=== PATIENT | male | born 1960 | race Caucasian/White ===

== ENCOUNTER 2021-10-26 16:59 | Emergency (ER) | payer BC ==
[~2021-10-26] VITALS: Ht 172.7 cm; Wt 51.7 kg
[~2021-10-26 16:59] MED LIST: EFAV1TAB PO
[2021-10-26 17:17] VITALS: BP 124/72
--- NOTE | 2021-10-26 17:29 | PHYS DOC ---
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 Patient denies hitting his head on the ground. Denies any loss of consciousness. States the pain is worse on range of motion to the wrist. Denies anything specifically relieving the pain. (MARY VAZQUEZ [employer]) Review of Systems: Review of Systems: Constitutional: Denies fever or chills. [] Musculoskeletal: Reports left wrist pain Integument: Denies rash. [] Neurologic: Denies headache, focal weakness or sensory changes. [] Psychiatric: Denies depression or anxiety. [] ([employer]) Heart Score: C/O Chest Pain: N/A Risk Factors: Risk Factors: DM, Current or recent (<one month) smoker, HTN, HLP, family history of CAD, obesity. Risk Scores: Score 0 - 3: 2.5% MACE over next 6 weeks - Discharge Home Score 4 - 6: 20.3% MACE over next 6 weeks - Admit for Clinical Observation Score 7 - 10: 72.7% MACE over next 6 weeks - Early Invasive Strategies (MARY VAZQUEZ [employer]) Allergies: Allergies: Allergies Coded Allergies Type Severity Reaction Last Updated Verified No Known Drug Allergies 07/19/15 No (MARY VAZQUEZ [employer]) Physical Exam: PE: Constitutional: Well developed, well nourished, no acute distress, non-toxic appearance. [] Skin: Warm, dry, no erythema, no rash. [] Back: No tenderness, no CVA tenderness. [] Extremities: Left wrist with no obvious deformity. Tenderness on palpation of the left ulnar styloid. No scaphoid tenderness to the left wrist. Full range of motion to the left wrist and left fingers. Adequate radial, medial, ulnar sensation to the left fingers. +2 left radial pulse. Cap refill less than 2 seconds to left fingers. Neurologic: Alert and oriented X 3, normal motor function, normal sensory function, no focal deficits noted. [] Psychologic: Affect normal, judgement normal, mood normal. [] (MARY VAZQUEZ APRN) EKG: EKG: [] (MARY VAZQUEZ APRN) Radiology/Procedures: Radiology/Procedures: []PROCEDURE: WRIST 3V LEFT Exam: Left wrist 3 views INDICATION: Fall pain TECHNIQUE: Frontal, lateral oblique views of the left wrist Comparisons: None FINDINGS: Bone mineralization is normal. No acute or healed fractures. Mild soft tissue swelling at the left wrist. Joint spaces are well-maintained. IMPRESSION: Soft tissue swelling surrounding the wrist without underlying osseous abnormality identified. If the patient is demonstrating snuffbox tenderness recommend splinting with repeat imaging in 5-7 days to rule out an occult scaphoid injury. Electronically signed by: Fabricio Lowry MD (10/26/2021 6:53 PM) [facility] DICTATED and SIGNED BY: FABRICIO LOWRY MD DATE: 10/26/21 [id number] 0 (MARY VAZQUEZ APRN) Course & Med Decision Making: Course & Med Decision Making Pertinent Labs and Imaging studies reviewed. (See chart for details) This is a 60-year-old male patient presented to the ED today with left wrist pain that began yesterday after he fell. Left wrist x-rays interpreted by radiologist are negative for any acute findings. Patient eloped from the ED (MARY VAZQUEZ APRN) Course & Med Decision Making Patients Care and treatment plan provided by ER Nurse Practitioner. I was available for consult. Patient's chart reviewed. (DEMARCUS MARTINEZ DO) Monique Disclaimer: Monique Disclaimer: This electronic medical record was generated, in whole or in part, using a voice recognition dictation system. (MARY VAZQUEZ APRN) Departure Departure Impression: Primary Impression: Fall Qualified Codes: W19.XXXA - Unspecified fall, initial encounter Additional Impression: Left wrist sprain Qualified Codes: S63.502A - Unspecified sprain of left wrist, initial encounter Disposition: 07 LEFT AGAINST MEDICAL ADVICE Condition: STABLE Referrals: LACEY PAGE MD (PCP) MARY VAZQUEZ APRN Oct 26, 2021 17:29 DEMARCUS MARTINEZ DO Oct 27, 2021 18:41
--- NOTE | 2021-10-26 18:55 | RAD ---
Exam: Left wrist 3 views INDICATION: Fall pain TECHNIQUE: Frontal, lateral oblique views of the left wrist Comparisons: None FINDINGS: Bone mineralization is normal. No acute or healed fractures. Mild soft tissue swelling at the left wr ist. Joint spaces are well-maintained. IMPRESSION: Soft tissue swelling surrounding the wrist without underlying osseous abnormality identified. If the patient is demonstrating snuffbox tenderness recommend splinting with repeat imaging in 5-7 days to r ule out an occult scaphoid injury. Electronically signed by: Fabricio Castillo MD (10/26/2021 6:53 PM) [facility]
== END 2021-10-26 19:20 | disposition left against medical advice (07) ==
LOC: ER 16:59
DX: S63.502A Unspecified sprain of left wrist, initial encounter (principal); F17.200 Nicotine dependence, unspecified, uncomplicated; W18.39XA Other fall on same level, initial encounter; Y93.89 Activity, other specified; Y92.89 Other specified places as the place of occurrence of the external cause; Y99.8 Other external cause status
CPT/HCPCS: 73120; 99283